=== PATIENT | female | born 1990 | race American Indian/Alaskan Native ===

== ENCOUNTER 2019-03-18 19:45 | Emergency (ER) | payer SELFPAY ==
[2019-03-18 19:49] VITALS: BP 150/92
--- NOTE | 2019-03-18 19:50 | Emergency Department Report ---
Blank Doc - Documentation Documentation: 28-year-old female that presents with urinary frequency and dysuria. This initial assessment/diagnostic orders/clinical plan/treatment(s) is/are subject to change based on patient's health status, clinical progression and re- assessment by fellow clinical providers in the ED. Further treatment and workup at subsequent clinical providers discretion. Patient/guardians urged not to elope from the ED as their condition may be serious if not clinically assessed and managed. Initial orders include: 1- Patient sent to [facility] for further evaluation and treatment 2- UA
[2019-03-18 21:31] LABS: Bacteria,Urine 1+ /HPF (Negative); Bilirubin,Urine NEG (Negative); Blood,Urine NEG (Negative); Color,Urine Yellow (Yellow); Mucus,Urine FEW /HPF; Protein,Urine <15 mg/dL mg/dL (Negative); Urobilinogen,Urine < 2.0 mg/dL (<2.0)
[2019-03-18 21:32] LABS: HCG Qualitative,Urine Negative (Negative)
[2019-03-18] MEDS ORDERED: IPRATROPIUM 0.02% NEBU 2.5 ML IH ONE (23:48)
[2019-03-18] MEDS ORDERED: ALBUTEROL 2.5 MG/3 ML NEBU IH ONE (23:48)
--- NOTE | 2019-03-19 02:06 | Emergency Department Report ---
ED Female HPI - General Chief complaint: Urogenital-Female Stated complaint: UTI Time Seen by Provider: 03/18/19 19:49 Source: patient Mode of arrival: Ambulatory Limitations: No Limitations - History of Present Illness Initial comments: 28-year-old female presents with department complaining of increased urinary urgency decreased urinary production and increased bladder pressure no flank pain. No fever, chills, sweats MD Complaint: dysuria -: Gradual Location: suprapubic Radiation: non-radiating, suprapubic Severity: mild Quality: burning Consistency: constant Improves with: none Worsens with: none Are you Now?: No Associated Symptoms: dysuria - Related Data Previous Rx's Medication Instructions Recorded Last Taken Type Nitrofurantoin [place]/M-Cryst 100 mg PO Q12HR #20 capsule 03/19/19 Unknown Rx [Macrobid CAP] Phenazopyridine [Pyridium] 200 mg PO TID #10 tab 03/19/19 Unknown Rx Allergies Allergy/AdvReac Type Severity Reaction Status Date / Time aspirin Allergy Hives Verified 03/18/19 19:48 ED Review of Systems ROS: Stated complaint: UTI Other details as noted in HPI Comment: All other systems reviewed and negative ED Past Medical Hx - Past Medical History Previous Medical History?: No - Surgical History Past Surgical History?: No - Social History Smoking Status: Never Smoker Substance Use Type: Alcohol, Marijuana - Medications Home Medications: Home Medications Medication Instructions Recorded Confirmed Last Taken Type Nitrofurantoin [place]/M-Cryst 100 mg PO Q12HR #20 capsule 03/19/19 Unknown Rx [Macrobid CAP] Phenazopyridine [Pyridium] 200 mg PO TID #10 tab 03/19/19 Unknown Rx ED Physical Exam - General Limitations: No Limitations General appearance: alert, in no apparent distress - Head Head exam: Present: atraumatic, normocephalic - Eye Eye exam: Present: normal appearance, PERRL Pupils: Present: normal accommodation - ENT ENT exam: Present: normal exam, normal orophraynx, mucous membranes moist, TM's normal bilaterally - Neck Neck exam: Present: normal inspection - Respiratory Respiratory exam: Present: normal lung sounds bilaterally. Absent: respiratory distress - Cardiovascular Cardiovascular Exam: Present: regular rate, normal rhythm. Absent: systolic murmur, diastolic murmur, rubs, gallop - GI/Abdominal GI/Abdominal exam: Present: soft, normal bowel sounds - Extremities Exam Extremities exam: Present: normal inspection, normal capillary refill - Back Exam Back exam: Present: normal inspection - Neurological Exam Neurological exam: Present: alert, oriented X3, CN II-XII intact, normal gait - Psychiatric Psychiatric exam: Present: normal affect, normal mood. Absent: depressed, anxious, flat affect, manic, suicidal ideation - Skin Skin exam: Present: warm, dry, intact, normal color. Absent: rash, cyanosis, diaphoretic, petechiae, pallor, abrasion, ecchymosis ED Course Vital Signs 03/18/19 03/18/19 19:48 19:49 Temperature 98.6 F 98.6 F Pulse Rate 89 88 Respiratory 18 18 Rate Blood Pressure 150/92 150/92 O2 Sat by Pulse 99 99 Oximetry ED Medical Decision Making - Medical Decision Making Mrs. Springer presents with symptoms consistent with acute uncomplicated cystitis. No systemic symptoms. Not septic. Well appearing. Low suspicion for acute pyelonephritis given lack of fever, CVAT, or systemic features. Low suspicion for kidney stone or infected stone. test negative negative; not consistent with , including ectopic. Urinalysis was obtained , no indication for labs or imaging at this time. - Differential Diagnosis pyelonephritis, STI, vaginitis, Critical care attestation.: If time is entered above; I have spent that time in minutes in the direct care of this critically ill patient, excluding procedure time. ED Disposition Clinical Impression: Dysuria Disposition: DC-01 TO HOME OR SELFCARE Is pt being admited?: No Does the pt Need Aspirin: No Condition: Stable Instructions: Phenazopyridine (By mouth), Urinary Tract Infection in Women (ED), Dysuria (ED) Prescriptions: Nitrofurantoin [place]/M-Cryst [Macrobid CAP] 100 mg PO Q12HR #20 capsule Phenazopyridine [Pyridium] 200 mg PO TID #10 tab Referrals: PRIMARY CARE, [Primary Care Provider] - 3-5 Days [facility] [Provider Group] - 3-5 Days
== END 2019-03-19 02:49 | disposition home or self-care (01) ==
LOC: ED 19:45
DX: R30.0 Dysuria (principal); F10.10 Alcohol abuse, uncomplicated; F12.10 Cannabis abuse, uncomplicated; Z79.899 Other long term (current) drug therapy; Z88.6 Allergy status to analgesic agent
CPT/HCPCS: 81001; 81025